=== PATIENT | female | born 1945 | race Caucasian/White ===

== ENCOUNTER 2016-08-27 09:01 | Day surgery (SDC) | payer MEDICARE, OTHER ==
[2016-08-24 16:54] VITALS: BMI 16.1
[~2016-08-27 09:01] MED LIST: LACTATED RINGERS 1,000 ML IV SCH
[2016-08-27 09:34] VITALS: RESP 16; TEMP 97.3
[2016-08-27] MEDS ORDERED: LIDOCAINE 1% 20 ML VIAL (10MG/ML) FOR IV START SQ ONE (09:37)
--- NOTE | 2016-08-27 12:37 | P.GSHP ---
History of Present Illness H&P Date: 08/27/16 (T) Chief Complaint: GERD, diarrhea A 71-year-old female referred from Dr. Tristan Munroe. Patient's had complaints of GERD and diarrhea. She presents today for EGD and colonoscopy Past Medical History Past Medical History: Asthma, Heart Failure, COPD, CVA/TIA, Dementia, Fibromyalgia, GERD/Reflux, Hyperlipidemia, Hypertension, Memory Impairment, Osteoarthritis (OA), Pneumonia, Respiratory Disorder, Rheumatoid Arthritis (RA) , Seizure Disorder, Supraventricular Tachycardia (SVT) Additional Past Medical History / Comment(s): Recent GERD/ diarrhea. Hx: UTI with sepsis, ischemic cerebral infarct, home o2 at 2.5L/NC HS, last seizure January2016, migraines, colitis, IBS, ulcers, MILD DEMENTIA, CHRONIC BACK PAIN, constipation and diarrhea. Restless leg syndrome. History of Any Multi-Drug Resistant Organisms: None Reported Past Surgical History: Adenoidectomy, Appendectomy, Back Surgery, Bladder Surgery, Cholecystectomy, Hysterectomy, Joint Replacement, Orthopedic Surgery, Tonsillectomy, Tubal Ligation Additional Past Surgical History / Comment(s): HX carpal tunnel bilaterally, cervical surgery, mass removed from stomach 10/2013, bilateral cataract removal , D&C, LUMBAR FUSION, LT FEMORAL NECK FRACTURE D/T FALL, pepe fundoplication, left hip replacement summer 2013 Past Anesthesia/Blood Transfusion Reactions: Motion Sickness, Postoperative Nausea & Vomiting (PONV) Past Psychological History: Anxiety, Depression Additional Psychological History / Comment(s): Pt currently resides with her 2 sons and shannan-in-law. She has a nurse coming in once a week to do V/S and check on her from [facility] home care. She performs most of her own ADLs - needs minimal assistance. She uses a walker on wheel and a seat to ambulate is weak but denies any falls. She has home O2 at 2L/NC prn. Son manages her medication. Smoking Status: Current every day smoker Past Alcohol Use History: None Reported Additional Past Alcohol Use History / Comment(s): SMOKES 1 PPD for 57 YEARS. Started smoking when she was 14 yrs old. Past Drug Use History: None Reported - Past Family History Mother Family Medical History: Coronary Artery Disease (CAD) Additional Family Medical History / Comment(s): Pt recalls mother had heart disease. Pt did not know her mother well. Son(s) Family Medical History: Cancer, Deep Vein Thrombosis (DVT) Additional Family Medical History / Comment(s): Testicular CA, Teratoma in 1 son. DVT iin another son. Medications and Allergies Home Medications Medication Instructions Recorded Confirmed Type Amitriptyline HCl [Elavil] 100 mg PO HS 12/20/13 08/27/16 History Donepezil HCl [Aricept] 10 mg PO HS 12/20/13 08/24/16 History Montelukast [Singulair] 10 mg PO QAM 12/20/13 08/24/16 History Ondansetron [Zofran] 4 mg PO DAILY PRN 10/29/14 08/24/16 History Esomeprazole Magnesium [NexIUM] 40 mg PO DAILY 05/01/15 08/24/16 History rOPINIRole HCL [Requip] 1 mg PO BID 05/01/15 08/24/16 History Albuterol Nebulized (Conc) 2.5 mg INHALATION TID PRN 08/24/16 08/24/16 History [Ventolin Nebulized (Conc)] Atenolol 25 mg PO QAM 08/24/16 08/24/16 History Fluticasone Propionate [Flovent 2 puff INHALATION BID 08/24/16 08/24/16 History Hfa 110mcg] Gabapentin [Neurontin] 300 mg PO BID 08/24/16 08/24/16 History LORazepam [Ativan] 0.5 mg PO BID 08/24/16 08/24/16 History Mirtazapine [Remeron] 15 mg PO HS 08/24/16 08/24/16 History oxyCODONE-APAP 5-325MG [Percocet 1 tab PO BID 08/24/16 08/27/16 History 5-325 mg] Allergies Allergy/AdvReac Type Severity Reaction Status Date / Time codeine Allergy Unknown Nausea & Verified 08/24/16 15:55 Vomiting morphine Allergy Unknown Nausea & Verified 08/24/16 15:55 Vomiting NSAIDS (Non-Steroidal Allergy Unknown Abdominal Verified 08/24/16 15:55 Anti-Inflamma Pain paroxetine [Paroxetine] Allergy Unknown Hallucinati Verified 08/24/16 15:55 ons Surgical - Exam Vital Signs Temp Pulse Resp BP Pulse Ox 97.3 F L 112 H 16 147/92 89 L 08/27/16 09:33 08/27/16 09:33 08/27/16 09:33 08/27/16 09:33 08/27/16 09:33 - General well developed, no distress - Eyes PERRL - ENT normal pinna - Respiratory normal expansion - Abdomen Abdomen: soft, non tender Assessment and Plan Plan: GERD, diarrhea. We'll perform EGD and colonoscopy
[2016-08-27] MEDS ORDERED: PROPOFOL 10 MG/ML 20 ML VIAL IV ONE (12:38)
[2016-08-27] MEDS ORDERED: LIDOCAINE 1% INJ 10MG/ML (20 ML MDV) ONE (12:38)
--- NOTE | 2016-08-27 13:02 | P.OP ---
Date of Procedure: 08/27/16 Preoperative Diagnosis: GERD Diarrhea Postoperative Diagnosis: Mild antral gastritis No evidence of hiatal hernia Mild esophagitis Mild diverticulosis Random biopsies of colon Procedure(s) Performed: EGD Colonoscopy Anesthesia: MAC Surgeon: Shivam Benjamin Pathology: other (Antrum, multiple colonic biopsy) Condition: stable Disposition: PACU Description of Procedure: The patient's placed on the endoscopy table in the lateral position. He received IV sedation. The gastroscope some placed oropharynx and passed into the esophagus and into the stomach. The scope was then placed through the pylorus. First and second portion of the duodenum appeared normal. Scope was then brought back and the antrum and this appeared mildly inflamed. A biopsies performed. The scope was unretroflexed and remainder of the stomach appeared normal. There is no evidence of a hiatal hernia. The GE junction was at40 cm. The distal esophagus appeared mildly inflamed and a biopsies was performed. The proximal esophagus. Normal. Scope was withdrawn for patient. Next digital rectal exam was performed which revealed no abnormalities. The flexible colonoscope was then placed patient anus and passed throughout the entire colon. The ileocecal valve was visualized. The cecum appeared normal. A random biopsy of the right, transverse, descending and sigmoid colon was performed. There is no evidence of any bleeding. There is minimal inflammation seen throughout the colon. Scope was then brought back the rectum and this appeared normal. Scope was withdrawn for patient.
[2016-08-27 13:26] VITALS: BP 132/65; PULSE 94
== END 2016-08-27 14:05 | disposition home or self-care (01) ==
LOC: ORWHC2ENDO 09:01
PROVIDERS: ATTEND Surgery
DX: K21.0 Gastro-esophageal reflux disease with esophagitis (principal); K29.50 Unspecified chronic gastritis without bleeding; K57.30 Diverticulosis of large intestine without perforation or abscess without bleeding; D12.2 Benign neoplasm of ascending colon; F03.90 Unspecified dementia, unspecified severity, without behavioral disturbance, psychotic disturbance, mood disturbance, and anxiety; F17.200 Nicotine dependence, unspecified, uncomplicated; G40.909 Epilepsy, unspecified, not intractable, without status epilepticus; M54.9 Dorsalgia, unspecified; G89.29 Other chronic pain; J45.909 Unspecified asthma, uncomplicated; M06.9 Rheumatoid arthritis, unspecified; G25.81 Restless legs syndrome; Z99.81 Dependence on supplemental oxygen; Z79.51 Long term (current) use of inhaled steroids; Z79.891 Long term (current) use of opiate analgesic; Z79.899 Other long term (current) drug therapy; Z88.6 Allergy status to analgesic agent; Z88.8 Allergy status to other drugs, medicaments and biological substances; Z86.73 Personal history of transient ischemic attack (TIA), and cerebral infarction without residual deficits; Z88.5 Allergy status to narcotic agent
CPT/HCPCS: 45380; 43239; 88305; 88342; J2001; J2704; 99153

== ENCOUNTER → 2016-10-18 | Outpatient (CLI) | payer MEDICARE, OTHER ==
[~2016-10-18] MED LIST changes: -LACTATED RINGERS 1,000 ML IV SCH; +REGADENOSON 0.4 MG/5 ML SYRINGE IV ONE
--- NOTE | 2016-10-18 11:21 | NM ---
EXAMINATION TYPE: NM stress Lexiscan cardiolite DATE OF EXAM: 10/18/2016 11:09 AM COMPARISON: Previous study dated 12/27/2012. HISTORY: Abnormal EKG. TECHNIQUE: After the intravenous administration of 11 mCi Tc 99m Sestamibi - Cardiolite resting SPEC T images acquired 45 minutes post injection. The patient received 0.4mg Lexiscan, 27.1 mCi Tc 99m Sestamibi - Stress images obtained [address] injection FINDINGS: There is good uptake of the radiopharmaceutical by the left ventricle without fixed defect. There is some questionable inducible ischemic change in the apex of the left ventricle.. Gated analysis shows normal wall motion with an estimated left ventricular ejection fraction of 50 %. IMPRESSION: I CANNOT EXCLUDE SOME MUCOSAL ISCHEMIC CHANGE IN THE APEX OF THE LEFT VENTRICLE.
--- NOTE | 2016-10-18 14:03 | EST ---
DATE OF SERVICE: 10/18/2016 AGE: 71Y SEX: F HT: 64" WT: 97 lbs. Lexiscan Cardiolite Stress Test *Heart Rate Blood Pressure *Rest: 82 Rest: 135/75 * *Max. Achieved: 98 Maximum BP: 151/74 85% PMHR: - 100% PMHR: - *METS: - INDICATIONS: Chest pain. MEDICATIONS: - Patient was given Lexiscan injection over a period of 15 seconds. Peak heart rate of 98 was achieved. Maximum blood pressure 151/74 mmHg was noted. Resting EKG shows normal sinus rhythm with normal IA interval and QRS duration and normal ST-T waves. No ST segment depression suggestive of ischemia is noted. The results of the nuclear study will follow.
== END | disposition home or self-care (01) ==
LOC: RADNMMAIN 08:14
PROVIDERS: ATTEND Family Medicine
DX: R94.31 Abnormal electrocardiogram [ECG] [EKG] (principal)
CPT/HCPCS: 93017; 78452; A9500; J2785

== ENCOUNTER → 2016-11-17 | Outpatient (CLI) | payer MEDICARE, OTHER ==
[2016-11-17 18:18] LABS: Anion Gap 9 mmol/L; Blood Urea Nitrogen 15 mg/dL (7-17); Carbon Dioxide 28 mmol/L (22-30); Chloride 98 mmol/L (98-107); Non-African American GFR(MDRD) >60 (>60 ml/min/1.73 sqM); Potassium 4.5 mmol/L (3.5-5.1); Sodium 135 mmol/L (137-145)
[2016-11-17 20:35] LABS: CHCM 30.9; HCT 37.8 % (34.0-46.0); HDW 2.84; HGB 11.7 gm/dL (11.4-16.0); Hypochromasia Moderate; MCH 29.2 pg (25.0-35.0); MCV 94.4 fL (80.0-100.0); Mean Platelet Volume 6.8; RDW 14.4 % (11.5-15.5); WBC 4.7 k/uL (3.8-10.6)
== END | disposition home or self-care (01) ==
LOC: LABPAT 17:01
PROVIDERS: ATTEND Internal Medicine Interventional Cardiology
DX: Z01.818 Encounter for other preprocedural examination (principal); R07.9 Chest pain, unspecified
CPT/HCPCS: 80051; 82565; 84520; 85027

== ENCOUNTER 2016-11-19 06:39 | Day surgery (SDC) | payer MEDICARE, OTHER ==
[2016-11-17 11:34] VITALS: BMI 16.7
[~2016-11-19 06:39] MED LIST changes: +ALPRAZolam 0.25 MG TAB PO PRN; +ALPRAZolam 0.5 MG TAB PO PRN; +ASPIRIN 325 MG TAB PO STA; +ATORVASTATIN 80 MG TAB PO STA; +NITROGLYCERIN SL TABS 0.4 MG TAB SUBLINGUAL PRN; -REGADENOSON 0.4 MG/5 ML SYRINGE IV ONE; +SODIUM CHLORIDE 0.9% 1,000 ML in EMPTY BAG 1 BAG IV ONE
[2016-11-19] MEDS ORDERED: LIDOCAINE 2% INJ 20 MG/ML (20 ML MDV) ONE (07:19)
[2016-11-19] MEDS ORDERED: IV FLUID CONTINUATION 1,000 ML IV ONE (07:20)
[2016-11-19 07:23] VITALS: TEMP 97.9
[2016-11-19] MEDS ORDERED: VERAPAMIL 2.5 MG/ML 2 ML AMP ONE (07:23)
[2016-11-19] MEDS ORDERED: fentaNYL (PF) 50 MCG/ML 2 ML AMP ONE (07:27)
[2016-11-19] MEDS ORDERED: diphenhydrAMINE 50 MG/ML 1 ML VIAL ONE (07:27)
[2016-11-19] MEDS ORDERED: diphenhydrAMINE 50 MG/ML 1 ML VIAL IVP ONE (07:31)
[2016-11-19] MEDS ORDERED: fentaNYL (PF) 50 MCG/ML 2 ML AMP IV ONE (07:32)
[2016-11-19] MEDS ORDERED: LIDOCAINE 2% INJ 20 MG/ML IV ONE (07:39)
[2016-11-19] MEDS ORDERED: VERAPAMIL SYRINGE (5 MG/10 ML) IV ONE (07:40)
[2016-11-19] MEDS ORDERED: HEPARIN SODIUM 1,000 UNIT/ML VIAL ONE (07:49)
[2016-11-19] MEDS ORDERED: IOHEXOL 350 MG/ML 125ML BOTTLE INJ ONE (08:00)
[2016-11-19] MEDS ORDERED: RX INFO: IV CONTRAST WAS GIVEN 1 EACH MISC MISCELLANE PRN (08:11)
[2016-11-19] MEDS ORDERED: ONDANSETRON 4 MG TAB PO PRN (08:12)
[2016-11-19] MEDS ORDERED: FLUTICASONE PROPIONATE INHALATION PRN (08:12)
[2016-11-19] MEDS ORDERED: oxyCODONE-APAP 7.5-325MG 1 EACH TAB PO PRN (08:12)
[2016-11-19] MEDS ORDERED: PANTOPRAZOLE 40 MG TABLET PO PRN (08:12)
[2016-11-19] MEDS ORDERED: SODIUM CHLORIDE 0.9% 1,000 ML IV SCH (08:15)
--- NOTE | 2016-11-19 08:51 | CC ---
DATE OF SERVICE: Mrs. Caldera is a 71-year-old female with known history of hypertension, hyperlipidemia, chronic tobacco use. She has been complaining of progressive symptoms of chest discomfort as well as dyspnea on exertion, underwent myocardial perfusion imaging that revealed an apical ischemia. In view of that, recommendation was made regarding cardiac catheterization. The procedure as well as the risks and complications were discussed with the patient, who is in full understanding and agreement. PROCEDURE: Patient was brought to the [facility] in a fasting semi-sedated state after some fentanyl and Benadryl and achieving moderate conscious sedation state, using Xylocaine anesthesia and Seldinger technique, a 6 [place] sheath was introduced in the right radial artery. Selective right and left coronary angiography office were performed using 5 [place], 3-1/2 Bend right and left Wade catheter. Multiple views of coronary artery including hemiaxial views obtained. Following that, a 5 [place] tight pigtail catheter was introduced into the left ventricle and a 30 degree MENARD view of the left ventricle was obtained. Following that, catheter and sheaths were removed. Hemostasis was obtained with deployment of TR band. There was no immediate complication. Patient is returned to her room in stable condition. Of note, patient received 2500 units of intravenous heparin as well as intra-arterial verapamil. FINDINGS: FLUOROSCOPY: There is calcification predominantly involving the right coronary artery. LEFT MAIN: This is a short-sized vessel, bifurcating into left circumflex, left anterior descending artery, left main coronary artery is without any significant obstructive coronary artery disease. LEFT ANTERIOR DESCENDING ARTERY: This is a large-size vessel reaching toward the apex, giving rise to a very proximal moderately to large-sized diagonal branch. The left anterior descending artery in the mid segment after the take-off of the first septal floor layer has a 20% - 30% plaque. The rest of the vessel has no high-grade stenosis. LEFT CIRCUMFLEX: This is a nondominant vessel, giving rise to a large obtuse marginal branch that is tortuous. The left circumflex as well as its branches have no evidence of obstructive coronary artery disease. RIGHT CORONARY ARTERY: This is a large dominant vessel, bifurcating distally into PDA and posterolateral segment and branches. The right coronary artery is calcified in the mid segment, has an area of stenosis of about 30% to 40% without any evidence of high-grade stenosis. LEFT VENTRICULOGRAM: Left ventriculogram was performed in 30 degree MENARD view and revealed a normal ventricular size. There was apical akinesis or pouching. The ejection fraction was over 60%. There was no significant mitral regurgitation. HEMODYNAMICS: There was no gradient across the aortic valve. The left ventricle end-diastolic was 60 mmHg. CONCLUSION: 1. Mild coronary artery disease involving the mid right coronary artery and the mid left anterior descending artery. 2. Preserved systolic function. RECOMMENDATION: In view of finding anatomy, would recommend continue medical therapy with aggressive risk modifications being initiated. Those findings and recommendations were discussed with the patient and her family who are in full understanding and agreement.
--- NOTE | 2016-11-19 08:54 | LTR ---
November 19, 2016 RE: Monique Caldera Consuelo Dear Dr. Whitaker; I had the pleasure to perform cardiac catheterization on Mrs. Caldera at [facility] on November 15, 2016 and a full copy of the procedure note will be forwarded to you. In brief, she was found to have mild coronary artery disease with no evidence of high-grade stenosis and based on those findings, I would recommend to continue medical therapy with the aggressive risk modifications being initiated and thank you again for allowing me to participate in this patient's care. Please feel free to call for any questions. Sincerely yours, JOANA BAPTISTE MD
[2016-11-19] MEDS ORDERED: MONTELUKAST 10 MG TAB PO SCH (09:00)
[2016-11-19] MEDS ORDERED: ATENOLOL 25 MG TAB PO SCH (09:00)
[2016-11-19] MEDS ORDERED: ATORVASTATIN 20 MG TAB PO SCH (09:00)
[2016-11-19] MEDS ORDERED: NON-FORMULARY DRUG (Aspirin [Adult Low Dose Aspirin Ec] 81 MG) PO SCH (09:00)
[2016-11-19] MEDS ORDERED: LORazepam 0.5 MG TAB PO SCH (09:00)
[2016-11-19] MEDS ORDERED: GABAPENTIN 300 MG CAP PO SCH (09:00)
[2016-11-19] MEDS ORDERED: ALBUTEROL NEBULIZED 2.5 MG/3 ML INHALATION SCH (12:00)
[2016-11-19 12:32] VITALS: RESP 16
[2016-11-19 12:38] VITALS: BP 105/57; PULSE 60
[2016-11-19] MEDS ORDERED: AMITRIPTYLINE HCL 100 MG PO SCH (21:00)
[2016-11-19] MEDS ORDERED: MIRTAZAPINE 15 MG TAB PO SCH (21:00)
[2016-11-19] MEDS ORDERED: DONEPEZIL 10 MG TAB PO SCH (21:00)
== END 2016-11-19 13:30 | disposition home or self-care (01) ==
LOC: CATHCVL 06:39
PROVIDERS: ATTEND Internal Medicine Interventional Cardiology
DX: I25.10 Atherosclerotic heart disease of native coronary artery without angina pectoris (principal); I10 Essential (primary) hypertension; E78.2 Mixed hyperlipidemia; F17.290 Nicotine dependence, other tobacco product, uncomplicated; Z79.899 Other long term (current) drug therapy; Z79.82 Long term (current) use of aspirin; Z79.51 Long term (current) use of inhaled steroids; Z88.6 Allergy status to analgesic agent; Z88.5 Allergy status to narcotic agent
CPT/HCPCS: 93458; C1894; C1769; J2001; J1200; J3010; J1644; Q9967

== ENCOUNTER → 2017-03-29 | Outpatient (CLI) | payer MEDICARE, OTHER ==
--- NOTE | 2017-03-29 15:55 | NM ---
EXAMINATION TYPE: NM bone scan whole body DATE OF EXAM: 03/29/2017 COMPARISON: Prior nuclear medicine whole body scan May 15, 2012 HISTORY: Chronic pain per order. Whole body aches per patient. History of rheumatoid arthritis per pa tiemandy. History of prior low back surgery and left wrist fracture per patient. Delayed whole-body scanning was performed following the injection of 25.1 mCi Tc 99m MDP. Images acq uired 3 hours post injection. FINDINGS: No new suspicious radiotracer uptake is seen to suggest metastatic to the bone or other significant a bnormality. Postsurgical change in the lower lumbar spine is redemonstrated with central vertical fidelina ency consistent with laminectomy defects and spinous process resection. Increased uptake in the right neck is felt to reflect degenerative change at this level unchanged from prior. IMPRESSION: As above
== END | disposition home or self-care (01) ==
LOC: RADNMMAIN 02-17 10:57
PROVIDERS: ATTEND Family Medicine
DX: G89.4 Chronic pain syndrome (principal)
CPT/HCPCS: 78306; A9503

== ENCOUNTER → 2017-06-03 | Outpatient (CLI) | payer MEDICARE, OTHER ==
--- NOTE | 2017-06-03 11:18 | XR ---
EXAMINATION TYPE: XR chest 2V DATE OF EXAM: 06/03/2017 COMPARISON: 10/15/2015 TECHNIQUE: PA and lateral views submitted. HISTORY: Shortness of breath FINDINGS: The lungs are clear and there is no pneumothorax, pleural effusion, or focal pneumonia. Biapical pl eural thickening. Postsurgical change overlying the cervical spine. Atherosclerotic change aorta. Hyp erinflation suggests COPD. Linear change involving the lung base most typical scar or atelectasis. Se michelle compression deformity lower thoracic spine is stable with multilevel degenerative disc disease. Mild to moderate compression deformity upper thoracic spine of indeterminate age. IMPRESSION: 1. COPD with no acute process. 2. Stable severe compression deformity lower thoracic spine. Additional age-indeterminate mild compre ssion deformity upper thoracic spine.
== END ==
LOC: RADXRMAIN 10:42
PROVIDERS: ATTEND Family Medicine
DX: J44.9 Chronic obstructive pulmonary disease, unspecified (principal)
CPT/HCPCS: 71020